=== PATIENT | female | born 1960 | race Caucasian/White ===

== ENCOUNTER 2020-05-18 10:00 | Emergency (ER) | payer OTHER, SELFPAY ==
[2020-05-18 11:36] VITALS: BP 167/104; PULSE 77; RESP 18; TEMP 36.3; O2SAT 96; BMI 31.1
--- NOTE | 2020-05-18 11:51 | ED_ITS ---
HPI - COVID General: Chief Complaint: COVID symptoms Stated Complaint: ABD pain/trouble sleeping COVID + Time Seen by Provider: 05/18/20 11:51 Triage information: No fever, cough or shortness of breath . No known COVID + exposure last 14 days History of Present Illness: HPI Narrative: Patient is a 59-year-old female comes to the ED with upper respiratory symptoms and is Covid positive. Patient says she has had upper respiratory symptoms of cough, nasal congestion drainage since Wednesday. She was tested for COVID-19 at clinic on Wednesday and she found out she was positive yesterday. She was told to self quarantine. She describes having a lot of coughing and she coughs up clear fluid. Denies abdominal pain, shortness of breath, nausea/vomiting, bladder or bowel symptoms. COVID 19 common symptoms: positive productive cough (clear phlegm) and nasal congestion; negative fever(s), chills, non-productive cough, dyspnea, fatigue, headache(s), throat pain, nausea, vomiting or diarrhea COVID 19 other sytmptoms: negative chest pain COVID Results: No Data to Display Review of Systems Const: Denies: fever(s), chills or fatigue Eyes: Denies: change in vision or eye discomfort ENMT: Reports: nasal discharge and nasal congestion; Denies: throat pain or odynophagia Card: Denies: chest pain, palpitations, edema, swelling of feet/ankles, dyspnea on exertion or orthopnea Resp: Reports: productive cough (clear phlegm); Denies: dyspnea or non-productive cough GI: Denies: abdominal pain, nausea, vomiting, diarrhea, constipation or hematochezia : Denies: flank pain, dysuria or hematuria Musc: Denies: neck pain, back pain or extremity swelling Skin/Breast: Denies: rash or new lesions Neuro: Denies: headache(s), numbness in extremities or weakness in extremities Physical Exam Const: COMMON NORMALS: no acute distress, patient oriented x3 and alert HENMT: COMMON NORMALS: normocephalic HEAD & SCALP: normocephalic MOUTH: Normal oral and palatal mucosa present THROAT: posterior oropharynx normal and uvula midline Neck/C-Spine: COMMON NORMALS: supple GENERAL: Yes normal visual inspection Resp: COMMON NORMALS: normal respiratory effort, No retractions and No use of accessory muscles AUSCULTATION: wheezes expiratory wheezes (mild--bilateral upper lobes) Cardio: COMMON NORMALS: regular rate, regular rhythm, S1 normal heart sound present, S2 normal heart sound present, No gallops present (Cardio), No clicks present (Cardio), No murmurs present (Cardio) and Peripheral pulses 2+ throughout RATE: regular rate RHYTHM: regular rhythm HEART SOUNDS: S1 normal heart sound present and S2 normal heart sound present PERIPHERAL PULSES: Peripheral pulses 2+ throughout GI: COMMON NORMALS: Normal to inspection, nondistended, normoactive bowel sounds present, Soft to palpation, non-tender and no masses PALPATION: Yes Soft to palpation : COMMON NORMALS: Yes no CVA tenderness BLADDER/KIDNEY EXAM: Yes no CVA tenderness Back/Pelvis: COMMON NORMALS: no CVA tenderness Extremity: COMMON NORMALS: normal to inspection and no pedal edema Neuro: COMMON NORMALS: patient oriented x3 and moves all extremities SENSORIUM/ORIENTATION: Yes alert Skin: GENERAL SKIN EXAM: dry skin Course ED course: Patient is a 59-year-old female who comes to the ED with cough after testing positive for Covid. I examined patient and she appeared in good health and vitals were stable. Pulse 63, respirations 18, temp 97.3, O2 sat 95% on room air. She was showing no signs of any acute respiratory distress. Lungs had some mild wheezing on the upper lobes bilaterally. Patient was diagnosed with COVID-19 virus infection and acute bronchitis and sent with prescription for azithromycin, prednisone and albuterol inhaler. Patient told to continue self quarantine as previously directed. Return to ED precautions given. Follow-up with PCP in 7 to 10 days. Patient understood and agreed with plan. Vital Signs: Vital signs: Vital Signs Temperature 97.3 F L 05/18/20 11:36 Pulse Rate 63 05/18/20 12:48 Respiratory Rate 18 05/18/20 12:48 Blood Pressure 138/83 05/18/20 12:48 Pulse Oximetry 95 05/18/20 12:48 MDM - COVID Lab Data COVID Results: No Data to Display Discharge Plan Discharge Patient Disposition: Home Clinical Impression: COVID-19 virus infection Acute bronchitis Qualifiers: Bronchitis organism: unspecified organism Qualified Code(s): J20.9 - Acute bronchitis, unspecified Condition: Stable Prescriptions: New azithromycin 250 mg tablet See Rx Instructions .ROUTE .COMPLEX Qty: 6 RF: 0 prednisone 20 mg tablet 20 mg PO TID 5 Days Qty: 15 RF: 0 albuterol sulfate 90 mcg/actuation aerosol powdr breath activated 2 inh INHALATION Q6H PRN (Reason: shortness of breath or wheezing) Qty: 1 RF: 0 Discharge Orders: Discharge Order (Routine); Ordered 05/18/20 Ordered By: Anand Valente Referrals: Shania Becker MD [Primary Care Provider] - Discharge Diet: Regular Discharge Activity: Increase activity as tolerated Patient Instructions: Acute Bronchitis (ED), Upper Respiratory Infection - Adult Activity Restrictions/Additional Instructions: Follow-up with medical provider as directed in 7-10 days. Continue self quarantine until as previously detailed. Take medications as prescribed. Return to the ER or your medical provider if condition worsens. Please read and understand discharge instructions. If any questions, please ask. Discharge Date/Time: 05/18/20 12:20 Coding Level of Care Code ED Upholstery Technician for Reji Fwd Exam Comprehensive
[2020-05-18 12:48] VITALS: BP 138/83; PULSE 63; RESP 18; O2SAT 95
== END 2020-05-18 12:20 | disposition home or self-care (01) ==
PROVIDERS: Emergency Provider Physician Assistant; PCP Family Medicine
DX: U07.1 COVID-19 (principal); J20.8 Acute bronchitis due to other specified organisms
CPT/HCPCS: 12345; 99281; 99282

== ENCOUNTER 2022-06-04 05:32 | Day surgery (SDC) | payer SELFPAY ==
[2022-06-03 08:47] VITALS: BMI 31.1
[2022-06-04 06:13] VITALS: BP 162/99; PULSE 64; RESP 18; TEMP 36.8; O2SAT 99
--- NOTE | 2022-06-04 06:19 | ANES.PREANE2 ---
Pre-Anesthetic Assessment Height/Weight: Height 1.57 m Weight 77.111 kg Temp Pulse Resp BP Pulse Ox O2 Del Method 98.3 F 64 18 162/99 99 06/04/22 06:13 06/04/22 06:13 06/04/22 06:13 06/04/22 06:13 06/04/22 06:13 06/04/22 06:13 Preop Diagnosis: Screening Operation Date: 06/04/22 07:00 Proposed Procedures p Colonoscopy 19417,Z12.11(Not Applicable) - Salvador Nicholson MD Familial anesthetic complications: N/V after jose Was Beta Avinash taken within 24 hours: N/A Was Clonidine taken within 24 hours: N/A Last intake: Food: Wednesday Drink: Last night 2199 Social No alcohol and No tobacco Exam alert, oriented x 3, clear to auscultation bilaterally and regular rate & rhythm Airway Submandibular: within normal limits Cervical ROM: within normal limits Mallampati: Class III Dentition: partials History/ROS No significant history except as noted and No significant complaints Pulmonary None reported CV/HEM Hypertension None reported Hepatic None reported GI None reported Metabolic None reported Musc/skel Lower Back Pain and Osteoarthritis/DJD Neuropsych None reported Anesthetic Plan ASA status: 2 Anesthesia: Anesthesia Evaluation, General and MAC Risk of > 500 ml blood loss (7ml/kg in children): No Medications/Allergies Home Medications Medication Instructions Recorded Confirmed Last Taken Type losartan 50 mg tablet 50 mg PO DAILY 04/30/22 06/04/22 06/03/22 History peg 3350-electrolytes 236 240 ml PO Q10M #4,000 mL 04/30/22 06/04/22 06/03/22 Rx gram-22.74 gram-6.74 gram-5.86 gram solution (Golytely) Allergies Allergy/AdvReac Type Severity Reaction Status Date / Time Penicillins Allergy Unknown Verified 06/04/22 06:24 Data Anesthesia Cardiac Studies: No Data to Display
[2022-06-04] MEDS: sodium chloride 0.9% 1,000 ML 30 ML IV (06:21)
--- NOTE | 2022-06-04 06:22 | W.PM.OPSFHP ---
Same Day Surgery H&P Indication for Procedure/HPI DATE OF PROCEDURE: June 04, 2022 CHIEF COMPLAINT/INDICATIONFOR SURGICAL PROCEDURE: Screening colonoscopy PREOP DIAGNOSIS: screening colonoscopy PLANNED PROCEDURE: Operation Date: 06/04/22 07:00 Proposed Procedures p Colonoscopy 18077,Z12.11(Not Applicable) - Salvador Nicholson MD This is a pleasant 61 years old female patient referred to my practice for screening colonoscopy. Patient reports no family history of colon cancer. Denies any weight loss. She only reports that her dad had 80% of the stomach out and she does not know why. No history of colon polyps. Patient is coming today for screening colonoscopy. ROS All systems have been reviewed negative except as for the above or per problem list. Medications/Allergies* Home Medications Medication Instructions Recorded Confirmed Type losartan 50 mg tablet 50 mg PO DAILY 04/30/22 06/04/22 History Allergies/Adverse Reactions Allergy/AdvReac Type Severity Reaction Status Date / Time Penicillins Allergy Unknown Verified 06/04/22 06:24 Current Medications: Generic Name Dose Route Start Last Admin Trade Name Jenny PRN Reason Stop Dose Admin Sodium Chloride 1,000 mls @ 30 mls/hr 06/04/22 06:00 06/04/22 06:21 Sodium Chloride 0.9% IV 06/05/22 05:59 30 mls/hr .Q24H DARIEL Administration Pertinent Exam Findings alert, oriented x 3, clear to auscultation bilaterally, regular rate & rhythm and procedure specific exam findings (Abdominal exam nontender soft nondistended) Recommendations Surgery/Procedure today (Colonoscopy with possible biopsy) Other Plans: Plan of care; After thorough history and physical examination and reviewing the chart, plan to perform screening colonoscopy. I discussed with the patient in details the risks,benefits,alternatives and indications.The risk of aspiration, bleeding, soft tissue injury, perforation of the colon ,missed lesions and other potential concomitant complications were explained to the patient in details,also the potential need for Laproscoy/Laparotomy to repair any related complications including but not limited to colectomy and or Closotomy.The patient understood this well and did agree to proceed. Rationale was carefully and clearly discussed with the patient.Appropriate informed consent have been reviewed and signed All questions have been answered and all concerns have been addressed to patient's satisfaction. Verbal and written Instructions were given to the patient for colonoscopy prep Coding Level of Care Code Acute Ventilation Equipment Tender for g Fweliel
[2022-06-04 07:05] VITALS: BP 162/97; PULSE 70; RESP 14; TEMP 36.1; O2SAT 100
[2022-06-04 07:10] VITALS: BP 145/94; PULSE 65; RESP 16; O2SAT 100
[2022-06-04 07:22] VITALS: BP 128/97; PULSE 67; RESP 18; O2SAT 98
--- NOTE | 2022-06-04 15:17 | ANE.PACU2 ---
Inpatient post-anesthesia follow up: Airway intact: Yes Vital signs: Temperature 97.0 F Pulse Rate 67 Respiratory Rate 18 Blood Pressure 128/97 Pulse Oximetry 98 Oxygen Delivery Me thod Room Air Oxygen Flow Rate Fraction of Inspir ed Oxygen Hydration adequate: Yes Nausea and vomiting: No Pain level: 1 Mental status: Baseline
== END 2022-06-04 07:49 | disposition home or self-care (01) ==
PROVIDERS: PCP Family Medicine; Visit Provider Surgery
PROC: 0DJD8ZZ Inspection of Lower Intestinal Tract, Via Natural or Artificial Opening Endoscopic (ICD-10-PCS; CPT 45378; principal; 2022-06-04 07:00)
DX: Z12.11 Encounter for screening for malignant neoplasm of colon (principal); I10 Essential (primary) hypertension; D12.0 Benign neoplasm of cecum; K57.30 Diverticulosis of large intestine without perforation or abscess without bleeding
CPT/HCPCS: 45385; 88305; J2704; J7030